=== PATIENT | female | born 1950 | race Caucasian/White ===

== ENCOUNTER 2017-09-09 11:19 | Outpatient (CLI) | payer MEDICARE, BC ==
[~2017-09-09] VITALS: Ht 167.6 cm; Wt 104.5 kg
--- NOTE | ~2017-09-09 | HEMODYNAMI ---
PATIENT:TRINI OSBORN MEDICAL RECORD: [id number] : 46 LOCATION:[facility] ADMISSION DATE: 09/09/17 Generatedon:09/09/201713:48 Patient name: TRINI OSBORN Patient #: [id number] SSN: [id number] : 1950 Date of study: 09/09/2017 Page: Of Hemodynamic Procedure Report Patient Data Patient Demographics Procedure consent was obtained First Name: TRINI Gender: Female Last Name: IRENA : 1950 Patient #: [id number] Age: 66 year(s) Race: Unknown SSN: [id number] Additional ID: [id number] Contact details [address]: [address] [place] [address] State: [place] City: [place] Zip code: [address] Past Medical History Allergies Allergen Reaction Date Comments Reported Other allergy 09/09/2017 celebrex, naprosyn Admission Admission Data Admission Date: 09/09/2017 Admission Time: 11:19 Arrival Date: 09/09/2017 Arrival Time: 13:00 Admit Source: Other Insurance Payor: Medicare Height (in.): 56 BSA: 1.9 (m2) Height (cm.): 142.24 BMI: 52.91 (kg/m2) Weight (lbs.): 236 Weight (kg.): 107.05 Lab Results Lab Result Date: 09/09/2017 Lab Result Time: 0:00 Biochemistry Name Units Result Min Max BUN mg/dl 24 --(----)-* 7 18 Creatinine mg/dl 0.8 --(-*--)-- 0.6 1.3 CBC Name Units Result Min Max Hemoglobin g/dl 12.3 *-(----)-- 13.5 17.5 Procedure Procedure Types Cath Procedure Diagnostic Procedure LHC LHC w/Coronaries Miscellaneous Procedures Moderate Sedation up to 15 minutes Procedure Description Procedure Date Procedure Date: 09/09/2017 Procedure Start Time: 13:35 Procedure End Time: 13:44 Procedure Staff Name Function Darvin Dobson MD Performing Physician Bhavani Robins RT Monitor Valentina York RT Scrub James Fair RN Nurse Samaria Martinez RN Nurse Indication Angina Procedure Data Cath Procedure Fluoroscopy Diagnostic fluoroscopy Total fluoroscopy Time: 2.1 time: 2.1 min min Diagnostic fluoroscopy Total fluoroscopy dose: 537 dose: 537 mGy mGy Entry Location Entry Primary Successful Side Size Upsize Upsize Entry Closure [place] ccessful Closure Location (Fr) 1 (Fr) 2 (Fr) Remarks Device Remarks Radial Right 6 Fr Manual TR artery Short Compression Estimated blood loss: 10 ml Diagnostic catheters Device Type Used For End Catheter Placement DIAGNOSTIC [place] 110cm 5 Procedure Fr catheter ([id number]) Procedure Complications No complications Procedure Medications Medication Administration Route Dosage Oxygen NC 2 l/min Heparin Flush Bag added to field 2 bags (1000units/500ml NS) 0.9% NaCl I.V. 100 ml/hr Radial Cocktail added to field 1 syringe (Verapomil 2mg/Nitro 400mcg/Heparin 1500units) Fentanyl I.V. 50 mcg Versed I.V. 1 mg Fentanyl I.V. 50 mcg Versed I.V. 1 mg Radial Cocktail added to field 1 syringe (Verapomil 2mg/Nitro 400mcg/Heparin 1500units) Hemodynamics Rest BSA: 1.9 (m2) HGB: 12.3 (g/dl) O2 Consumption: Estimated: 171.97 (ml/min) O2 Con sumption indexed: Estimated:90.51 (ml/min/m) Heart Rate: 64 (bpm) Pressure Samples Time Site Value (mmHg) Purpose Heart Use Rate(bpm) 13:39 LV 108/20,25 EDP 68 13:40 AO 95/64(77) Pullback 68 13:40 LV 99/16,20 Pullback 68 Gradients Valve Time Site 1 Site 2 Mean SEP/DFP Peak To Heart Use (mmHg) (sec/min) Peak Rate (mmHg) (bpm) Aortic 13:40 LV AO 3 9 4 68 99/16,20 95/64(77) Calculations Valve P-P Mean Valve Index Valve Source Name Gradient Area Flow (cm2) Aortic 4 3 4 3 Snapshots Pre Cath Intra NCS Post Cath Vital Signs Time Heart Resp SPO2 NIBP (mmHg) Rhythm Pain Sedation Rate (ipm) (%) Status Level (bpm) 13:18:13 69 19 100 130/66(109) NSR 0 (11) 10(A) , No pain 13:22:29 75 17 95 126/76(103) NSR 0 (11) 10(A) , No pain 13:26:49 62 17 94 126/63(87) NSR 0 (11) 10(A) , No pain 13:31:03 67 18 94 112/72(91) NSR 0 (11) 9(A) , No pain 13:35:15 67 17 96 108/65(88) NSR 0 (11) 9(A) , No pain 13:39:33 69 17 95 101/50(78) NSR 0 (11) 9(A) , No pain 13:43:43 68 17 96 114/66(87) NSR 0 (11) 9(A) , No pain 13:46:45 65 17 96 108/59(88) NSR 0 (11) 9(A) , No pain Medications Time Medication Route Dose Verified Delivered Reason Notes Effectiveness by by 13:23:10 Oxygen NC 2 l/min Darvin Ramirez Per [facility]. Neftali padilla MD 13:23:17 Heparin Flush added 2 bags Darvin Ramirez used for Bag to St. Neftali Fair RN procedure (1000units/500ml field RYAN NS) 13:23:28 0.9% NaCl I.V. 100 Darvin Ramirez Per ml/hr [facility]. Neftali padilla MD 13:23:36 Radial Cocktail added 1 Darvin Ramirez used for (Verapomil to syringe [facility]. Neftali Fair methods analyst data processing 2mg/Lexi rutledge MD 400mcg/Heparin 1500units) 13:23:50 Fentanyl I.V. 50 mcg Darvin Ramirez for sedation St. Neftali Fair RN, MD 13:23:57 Versed I.V. 1 mg Darvin Ramirez for sedation St. Neftali Fair RN, MD 13:29:26 Fentanyl I.V. 50 mcg Darvin Caldwelly for sedation St. Neftali Fair RN, MD 13:29:29 Versed I.V. 1 mg Darvin Ramirez for sedation St. Neftali Fair RN, MD 13:36:55 Radial Cocktail added 1 Darvin Boston for (Verapomil to syringe [facility] [place] vasodilation 2mg/Lexi rutledge MD, MD 400mcg/Heparin 1500units) Procedure Log Time Note 13:00:20 Bhavani Robins RT(R) sent for patient. Start room use. 13:05:51 Diagnostic Cath Status : Elective 13:06:46 Indication : Angina 13:07:21 Time tracking: Regular hours 13:07:25 Plan of Care:Hemodynamics will remain stable., Cardiac rhythm will remain stable., Comfort level will be maintained., Respiratory function will remain adequate., Patient/ family verbilizes understanding of procedure., Procedure tolerated without complication., Recovers from procedure without complications.. 13:08:12 Informed consent obtained and on chart 13:08:42 Patient Height : 56 inches 13:08:47 Patient Weight : 236 lbs 13:08:47 Admit Source: Other 13:08:59 Arrival Date: 09/09/2017 1:00:00 PM 13:09:19 Insurance Payor : Medicare 13:11:09 Lab Result : Creatinine 0.8 mg/dl 13:11:09 Lab Result : BUN 24 mg/dl 13:11:09 Lab Result : Hemoglobin 12.3 g/dl 13:11:20 Patient received from Pre/Post Procedure Room to CCL 2 Alert and oriented. Tansferred to table in Supine position. 13:11:21 Warm blankets applied, and nadira hugger turned on for patient comfort. 13:11:22 Correct patient and procedure confirmed by team. 13:11:23 ECG and BP/O2 sat monitors applied to patient. 13:16:06 Rhythm: sinus rhythm 13:16:17 H&P Date Dictated: 08/31/2017 Within 30 days and on chart., H&P Addendum completed by physician on day of procedure. (MUST COMPLETE FOR ALL OUTPATIENTS). 13:16:18 Full Disclosure recording started 13:16:22 Pre-procedure instructions explained to patient. 13:16:23 Pre-op teaching completed and patient verbalized understanding. 13:16:24 Family in waiting room. 13:16:25 Patient NPO since Midnight. 13:16:52 Patient allergic to Other allergycelebrex, naprosyn 13:17:01 Vital chart was started 13:17:05 Is the patient allergic to Iodine/contrast media? No. 13:17:08 Is patient on blood thinner?No 13:17:10 Patient diabetic? Yes. 13:17:11 If diabetic: On Metformin? No 13:17:15 Previous problem with sedation/anesthesia? No ? 13:17:25 Snore? Yes 13:17:26 Sleep apnea? No 13:17:27 Deviated septum? No 13:17:28 Opens mouth fully? Yes 13:17:29 Sticks out tongue? Yes 13:17:31 Airway obstruction? No ? 13:17:34 Dentures? No ? 13:18:55 Pre procedure: right dorsailis pedis pulse 2+ Normal; easily identifiable; not easily obliterated 13:18:58 Patient pain scale 0/10 ?. 13:19:04 IV patent on arrival in left hand with 0.9% NaCl at [facility]. 13:19:11 Lab results completed and on chart. 13:19:16 Right Radial & Right Groin area was prepped with chlora-prep and draped in sterile fashion 13:20:01 Alarms reviewed by R. N. 13:20:01 Sharps counted by scrub and verified by R.N. 13:20:04 Use device set Radial Dx 13:20:05 ACIST Syringe (14995) opened to sterile field. 13:20:05 Medline Cath Pack ([id number]) opened to sterile field. 13:20:06 Bag Decanter (2002S) opened to sterile field. 13:20:06 SHEATH 6FR Slender ([id number]) opened to sterile field. 13:20:07 DIAGNOSTIC WIRE .035 260cm J wire (159199) opened to sterile field. 13:20:08 ACIST Hand Control (29721) opened to sterile field. 13:20:09 ACIST Manifold (79035) opened to sterile field. 13:20:14 NEEDLE Cook 21G 4cm Radial ([id number]) opened to sterile field. 13:20:42 Baseline sample Acquired. 13:23:10 Oxygen 2 l/min NC was administered by James Fair RN; Per physician; 13:23:17 Heparin Flush Bag (1000units/500ml NS) 2 bags added to field was administered by James Fair RN; used for procedure; 13:23:24 Physician paged 13:23:25 Physician arrived 13:23:26 --------ALL STOP TIME OUT------ 13:23:27 Final Timeout: patient, procedure, and site verified with staff and physician. All members of the team are in agreement. 13:23:28 0.9% NaCl 100 ml/hr I.V. was administered by James Fair RN; Per physician; 13:23:29 Right Radial & Right Groin site verified by team. 13:23:32 Physical assessment completed. ASA score P 2 - A patient with mild systemic disease as per Darvin Dobson MD. 13:23:36 Radial Cocktail (Verapomil 2mg/Nitro 400mcg/Heparin 1500units) 1 syringe added to field was administered by James Fair RN; used for procedure; 13::37 Sedation plan: IV Moderate Sedation Medication:Versed, Fentanyl 13:23:50 Fentanyl 50 mcg I.V. was administered by James Fair RN; for sedation; 13::57 Versed 1 mg I.V. was administered by James Fair RN; for sedation; 13:29:26 Fentanyl 50 mcg I.V. was administered by James Fair RN; for sedation; 13:29:29 Versed 1 mg I.V. was administered by James Fair RN; for sedation; 13:35:34 Procedure started. 13:35:39 Local anesthetic to right radial artery with Lidocaine 2% by Darvin Dobson MD.INITIAL ACCESS ONLY 13:36:55 Radial Cocktail (Verapomil 2mg/Nitro 400mcg/Heparin 1500units) 1 syringe added to field was administered by Darvin Dobson MD; for vasodilation; 13:36:56 A 6 Fr Short sheath was inserted into the Right Radial artery 13:38:22 A DIAGNOSTIC [place] 110cm 5 Fr catheter (357379) was advanced over the wire and used for Procedure. 13:39:08 LV angiography performed. 13:40:34 EF : 55 % 13:40:36 LCA angiography performed. 13:40:53 RCA angiography performed. 13:41:49 Catheter removed. 13:41:56 TR BAND Standard ([id number]) opened to sterile field. 13:42:26 Sheath removed intact; hemostasis achieved with Manual Compression to the Right Radial artery. 13:42:28 Procedure ended.(Physican Out) 13:43:03 Fluoroscopy time 02.10 minutes. 13:43:09 Fluoroscopy dose: 537 mGy 13:43:09 Flurop Dose total: 537 13:43:17 Contrast amount:Isovue 300 46ml. 13:43:19 Sharps counted by scrub and verified by R.N. 13:43:25 TR band inflated with 10cc of air. 13:43:27 Insertion/operative site no bleeding no hematoma. 13:43:43 Post-op/insertion site Right Radial artery dressed using a 4 x 4 and Tegaderm. 13:43:46 Post Procedure Pulses reassessed and unchanged 13:43:50 Post-procedure physical assessment completed. ASA score P 2 - A patient with mild systemic disease as per Darvin Dobson MD. 13:43:54 Post procedure rhythm: unchanged. 13:43:57 Estimated blood loss: 10 ml 13:44:01 Post procedure instruction explained to patient.Patient verbalizes understanding. 13:44:10 Procedure type changed to Cath procedure, Diagnostic procedure, LHC, LHC w/Coronaries, Miscellaneous Procedures, Moderate Sedation up to 15 minutes 13:44:12 Procedure and supply charges have been captured, reviewed, submitted and are correct. 13:44:35 Procedure Complication : No complications 13:44:39 Vital chart was stopped 13:44:39 See physician's report for complete and final results. 13:44:41 Report given to Pre/Post Procedure Room. 13:44:44 Patient transfered to Pre/Post Procedure Room with Stretcher. 13:44:48 Procedure ended. 13:44:48 Full Disclosure recording stopped 13:44:59 End room use (Document Last) Device Usage Item Name Manufacture Quantity Catalog Hospital Part Current Minimal Lot# / Number Charge Number Stock Stock Serial# Code ACIST Acist 1 81828 087438 280591 [id number] 20 Syringe Fungos (92787) Systems Inc Medline Cath Cardinal 1 [id number] 598812 98860 766433 5 Pack FIXO ([id number]) Bag Decanter Microtek 1 420143 33470 114732 5 () Medical Inc. SHEATH 6FR Terumo 1 [id number] 038487 370834 247849 40 Slender ([id number]) DIAGNOSTIC [facility] [place] 1 533396 870196 599001 924082 30 WIRE .035 260cm J wire (546223) ACIST Hand Acist 1 49026 843747 362636 876257 5 Control Medical (08333) Systems Inc ACIST Acist 1 45637 012885 035846 711773 5 Manifold Medical (13753) Systems Inc NEEDLE Cook Cook Medical 1 [id number] 012923 629539 982191 5 21G 4cm Radial ([id number]) DIAGNOSTIC Terumo 1 40-4078 634178 873120 007140 5 [place] [facility] 110cm 5 Fr catheter (157545) TR BAND Terumo 1 [id number] 896737 315033 794224 40 Standard ([id number]) Signature Audit [place] Stage Time Signature Unsigned Intra-Procedure 09/09/2017 Bhavani Robins 1:48:47 PM RT(R) Signatures Monitor : Bhavani Robins Signature : RT Date : Time : [id number] [place] [address]
[2017-09-09] MEDS ORDERED: COREG6.25 MG PO (12:13)
[2017-09-09] MEDS ORDERED: ZESTORETIC 10/11 TAB PO (12:15)
[2017-09-09] MEDS ORDERED: PRESERVISION AR1 CAP PO (12:16)
[2017-09-09] MEDS ORDERED: LAMISIL250 MG PO (12:16)
[2017-09-09] MEDS ORDERED: CALCIUM 600+D T1 TA1 PO (12:16)
[2017-09-09] MEDS ORDERED: BAYER CHEWABLE81 MG PO (12:16)
[2017-09-09] MEDS ORDERED: BLACK COHOSH160 MG PO (12:17)
[2017-09-09 12:27] VITALS: BP 124/67; Ht 167.6 cm; Wt 104.5 kg
[2017-09-09 12:51] LABS: BASOPHILS 0.4 % (0-2); EOSINOPHILS 2.1 % (0-7); HEMOGLOBIN 12.3 g/dL (12-16); IMMATURE GRANULOCYTES 0.2 % (0-5); LYMPHOCYTES 19.9 % (15-50); MCH 30.3 pg (26.0-34.0); MCHC 32.4 g/dL (31.0-37.0); MCV 93.6 fL (80.0-100.0); MEAN PLATELET VOLUME 11.2 fL (7.4-10.4); MONOCYTES 10.7 % (2-11); NEUTROPHILS 66.7 % (40-80); PLATELET COUNT 225 10x3/uL (130-400); RBC 4.06 10x6/uL (4.00-5.40); WBC 5.3 10x3/uL (4.8-10.8)
[2017-09-09 12:59] LABS: CALC OSMOLALITY 280 mosm/kg (275-300); CALCIUM 9.6 mg/dL (8.5-10.1); CARBON DIOXIDE 28.5 mmol/L (21.0-32.0); CHLORIDE - SERUM 102 mmol/L (98-107); CREATININE - SERUM 0.8 mg/dL (0.6-1.3); GLUCOSE 122 mg/dL (74-106); POTASSIUM - SERUM 3.7 mmol/L (3.5-5.1); SODIUM 138 mmol/L (136-145); UREA NITROGEN 24 mg/dL (7-18); eGFR NON AFRICAN AMERICAN 75 mL/min (90-120)
--- NOTE | 2017-09-09 14:15 | NUR ---
ROOM AIR, NO RESP DISTRESS. RIGHT WRIST TR BAND CDI, NO BLEEDING OR HEMATOMA NOTED. NO C/O PAIN OR NAUSEA. VSS. FAMILY AT BEDSIDE, CALL LIGHT WITHIN REACH.
--- NOTE | 2017-09-09 14:45 | NUR ---
RESTING QUIETLY WITH EYES CLOSED. RIGHT WRIST TR BAND CDI, NO BLEEDING OR HEMATOMA NOTED. NO C/O PAIN OR NAUSEA. VSS. WILL CONTINUE TO MONITOR.
--- NOTE | 2017-09-09 15:16 | NUR ---
4CC OF AIR REMOVED FROM TR BAND, NO BLEEDING NOTED. VSS. WILL CONTINUE TO MONITOR.
--- NOTE | 2017-09-09 15:50 | NUR ---
LEFT FA PIV D/C'D WITH CATHETER INTACT, BAND AID TO SITE. UP TO BEDSIDE TO GET DRESSED. AMBULATED TO RESTROOM TO VOID.
--- NOTE | 2017-09-09 16:00 | NUR ---
DISCHARGE INSTRUCTIONS GIVEN, VERBALIZED UNDERSTANDING.
--- NOTE | 2017-09-09 16:12 | NUR ---
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 LEFT FACILITY WITH FAMILY AND ALL PERSONAL BELONGINGS.
--- NOTE | 2017-09-10 13:05 | OP ---
PATIENT NAME: TRINI OSBORN MEDICAL RECORD: [id number] :46 LOCATION:D.CAT ADMISSION DATE: SURGEON: AZAEL RENEE MD DATE OF OPERATION: 09/09/2017 PROCEDURE: Left heart catheterization, right radial approach. CATHETERS: Radial sheath, [place] catheter. The procedure was well tolerated. The patient was returned to [facility]. Sheath removed. TR band was placed. FINDINGS: Left ventriculography in 30-degree PAT view: Normal wall motion. Normal systolic function. CORONARY ANATOMY: LEFT MAIN: Left main is free of disease. LAD: Free of disease in the diagonal system. CIRCUMFLEX: Free of disease in the marginal system. RIGHT CORONARY ARTERY: Dominant artery, gives rise to PDA, free of disease. IMPRESSION: Normal systolic function. Normal coronary anatomy. TRANSINT:[id number] Voice Confirmation ID: [id number] DOCUMENT ID: [id number] AZAEL RENEE MD at 1305 CC: [id number] DICTATION DATE: 09/09/17 1347 HEEL COVER SPLITTER: 09/09/17 1439 DEP CLI 09/09/17 [id number] [place] [address]
== END 2017-09-09 16:12 | disposition home or self-care (01) ==
LOC: D.CATH 11:19
PROVIDERS: Internal Medicine Interventional Cardiology
DX: I20.9 Angina pectoris, unspecified (principal); I10 Essential (primary) hypertension; E78.5 Hyperlipidemia, unspecified; R06.02 Shortness of breath; Z01.812 Encounter for preprocedural laboratory examination

== ENCOUNTER → 2020-11-20 12:40 | Outpatient (CLI) | payer MEDICARE ==
[2017-09-09 12:27] VITALS: BMI 37.2
--- NOTE | ~2020-11-20 | EC ---
PATIENT:TRINI OSBORN DATE OF SERVICE: 11/20/20 SEX: F MEDICAL RECORD: [id number] DATE OF : [birth year] LOCATION:D.FORMERLY [facility] AGE OF PATIENT: 69 ADMISSION DATE: 11/20/20 REFERRING PHYSICIAN: INTERPRETING PHYSICIAN: AZAEL RENEE MD ECHOCARDIOGRAM REPORT ECHO CHARGES 4 ECHO COMPLETE Date: 11/20/20 CLINICAL DIAGNOSIS: HEART MURMUR ECHOCARDIOGRAPHIC MEASUREMENTS (adult normal given) AC root (d.<3.7cm) 3.1 cm LV Septum d (<1.2 cm> 1.1 cm Valve Excursion 1.5 cm LV Septum (systole) 1.2 cm Left Atria (s.<4.0cm> 3.3 cm LVPW d(<1.2cm) 1.4 cm RV (d.<2.3cm) 3.7 cm LVPW (sytole) 1.9 cm LV diastole(<5.6CM) 5.6 cm MV E-F(>70mm/sec) cm LV systole 4.6 cm LVOT Diameter 1.7 cm MV exc.(>10mm) 1.6 cm Est.ejection fraction (50-75%) % DOPPLER: LVIT cm/sec A 72.0 cm/sec E 55.0 cm/sec LA cm/sec RVSP 36 mmHg LVOT 123 cm/sec AOP1/2T m/s Asc. Ao 131 cm/sec RVOT 97 cm/sec RA cm/sec PA 112 cm/sec AV Gradient Peak 6.90 mmHg AV Mean 3.56 mmHg AV Area 2.4 cm MV Gradient Peak 2.74 mmHg MV Mean 0.93 mmHg MV Area cm COMMENTS: Crate Liner: 2 VIKASH MROGAN Parent Educator: 3 Dr. Dobson TAPE# PACS Pericardial Effusion N DATE OF SERVICE: Adequate 2D, color flow imaging, spectral Doppler, and M-Mode. No LVH. LV internal dimensions are normal. Wall motion is normal. EF is greater than or equal to 55%. Aortic valve is tricuspid. No evidence of stenosis by Doppler interrogation. Left atrium is normal at 3.3 cm. Mitral valve shows no prolapse. Trace MR. Right side is grossly normal. Mild TR. TRANSINT:[id number] Voice Confirmation ID: [id number] DOCUMENT ID: [id number] ECHOCARDIOGRAM REPORT [id number] OSBORNTRINI HERNANDEZ GREGORY A MD CC: [id number] DICTATION DATE: 11/21/20 1128 STATEMENT SERVICES REPRESENTATIVE: 11/21/202035 DEP CLI 11/20/20 [id number] [place] [address]
[~2020-11-20 12:40] MED LIST: BAYER CHEWABLE81 MG PO; BLACK COHOSH160 MG PO; CALCIUM 600+D T1 TA1 PO; COREG6.25 MG PO; LAMISIL250 MG PO; PRESERVISION AR1 CAP PO; ZESTORETIC 10/11 TAB PO
== END | disposition home or self-care (01) ==
LOC: D.HCCECHO 12:40
PROVIDERS: ATTEND Internal Medicine Interventional Cardiology
DX: R06.02 Shortness of breath (principal)